=== PATIENT | male | born 1950 | race Caucasian/White ===

== ENCOUNTER → 2016-10-09 | Day surgery (SDC) | payer MEDICARE, MEDICAID ==
--- NOTE | 2016-10-04 15:28 | Pre-Procedure Note/Attestation ---
Pre-Procedure Note/Attestation Complete Prior to Procedure Planned Procedure: left Procedure Narrative: 1. CATARACT EXTRACTION WITH PHACO AND PC IOL IMPLANTATION, LEFT EYE. 2.MALYUGIN RING INSERTION, LEFT EYE FOR FLOPPY IRIS SYNDROME. 3.COMPLEX CATARACT , LEFT EYE Indications for Procedure Pre-Operative Diagnosis: 1. CATARACT ,LEFT EYE. 2. FLOPPY IRIS SYNDROME, LEFT EYE 3. COMPLEX CATARACT , LEFT EYE. Attestation I attest that I discussed the nature of the procedure; its benefits; risks and complications; and alternatives (and the risks and benefits of such alternatives ), prior to the procedure, with the patient (or the patient's legal service liaison representative). I attest that, if there was a reasonable possibility of needing a blood transfusion, the patient (or the patient's legal service liaison representative) was given the [facility] standardized written summary, pursuant to the Angelito Yuki Blood Safety Act ([place] Health and Safety Code # 1645, as amended). I attest that I re-evaluated the patient just prior to the surgery and that there has been no change in the patient's H&P, except as documented below: CHRISTINE ROWLEY Oct 04, 2016 15:28
[2016-10-09] VITALS (9 sets, daily range): BP systolic 125–147; BP diastolic 81–92
[~2016-10-09] VITALS: Ht 177.8 cm; Wt 72.6 kg
[~2016-10-09] MED LIST: Akten 3.5% 1ml Btl ONE; BSS 15ml BTL ONE; BSS 500ml btl ONE; Dexamethasone 4mg/ml vial ONE; Diclofenac Sod 0.1% Op Soln ONE; DiphenhydrAMINE 50mg/ml Inj IVP PRN; DiphenhydrAMINE 50mg/ml Inj ONE; EPINEPHrine 1mg/1ml Amp ONE; Gatifloxacin Opth Solution 0.5% ONE; LR 1000ml 1,000 ML IVLG SCH; LR 1000ml ONE; Labetalol 5mg/ml 20ml vial IV PRN; Lidocaine 1% MPF 10mg/ml 5ml ONE; Midazolam 2mg/2ml Inj ONE; NKM; Phenylephrine 10% Opth Soln 5ml ONE; Povidone-Iodine 5% opth solution ONE; Sodium Hyaluronate 10 mg/ml 0.85ml ONE; Tropicamide 1% Opth Soln ONE; ZOLPIDEM TARTRA10 MG ORAL; acetaZOLAMIDE 125mg tab ORAL ONE; fentaNYL 100 mcg/2 mL IV ONE
[2016-10-09] MEDS: Diclofenac Sod 0.1% Op Soln LEFT EYE SCH ×3 (07:08→07:26)
[2016-10-09] MEDS: Tropicamide 1% Opth Soln LEFT EYE SCH ×3 (07:08→07:26)
[2016-10-09] MEDS: Phenylephrine 10% Opth Soln 5ml LEFT EYE SCH ×3 (07:08→07:26)
[2016-10-09] MEDS: Gatifloxacin Opth Solution 0.5% LEFT EYE SCH ×3 (07:08→07:26)
[2016-10-09] MEDS: Akten 3.5% 1ml Btl LEFT EYE SCH ×3 (07:09→07:25)
--- NOTE | 2016-10-09 07:17 | Anethesia Preoperative Eval ---
Anesthesia Pre-op PMH/ROS General Date of Evaluation: Oct 09, 2016 Anesthesiologist: Cyrus ASA Score: ASA 1 Mallampati Score Class I : Soft palate, uvula, fauces, pillars visible Class II: Soft palate, uvula, fauces visible Class III: Soft palate, base of uvula visible Class IV: Only hard plate visible Mallampati Classification: Class II Surgeon: Felix Diagnosis: Left cataract Surgical Procedure: Left cataract extraction with IOL Anesthesia History: none Family History: no anesthesia problems Allergies: Coded Allergies: No Known Allergies (Unverified , 09/27/16) Medications: see eMAR Past Medical History Cardiovascular: Denies: CAD, HTN, CT, arrhythmia, other, valve dz Pulmonary: Denies: COPD, KARLENE, asthma, other Gastrointestinal/Genitourinary: Denies: CRI, ESRD, GERD, other Neurologic/Psychiatric: Denies: CVA, TIA, dementia, depression/anxiety, other Endocrine: Denies: DM, hypothyroidism, other, steroids HEENT: Denies: L[place]EL[place] (L), LEVELOCK (R), cataract (L), cataract (R), glaucoma, other Hematology/Immune: Denies: DVT, anemia, bleeding disorder, other Musculoskeletal/Integumentary: Denies: DDD, DJD, OA, RA, edema, other PSxH Narrative: Right cataract Anesthesia Pre-op Phys. Exam Physician Exam see chart Constitutional: NAD Cardiovascular: RRR Respiratory: CTA Airway Exam Mallampati Score: Class II MO: full ROM: full Teeth: intact Anesthesia Pre-op A/P Labs see chart Studies Pre-op Studies: EKG - sr Risk Assessment & Plan Assessment: ASA I Plan: MAC Status Change Before Surgery: No Pre-Antibiotics Drug: N/A ALPHONSO MCCALL M.D. Oct 09, 2016 07:17
--- NOTE | 2016-10-09 07:25 | Immediate Post-Op Evaluation ---
Immediate Post-Op Evalulation Immediate Post-Op Evalulation Procedure: Left cataract extraction with IOL Date of Evaluation: Oct 09, 2016 Time of Evaluation: 09:38 IV Fluids: 400 Blood Products: 0 Estimated Blood Loss: 0 Urinary Output: 0 Blood Pressure Systolic: 142 Blood Pressure Diastolic: 87 Pulse Rate: 72 Respiratory Rate: 17 O2 Sat by Pulse Oximetry: 100 Temperature (Fahrenheit): 98.1 Pain Score (1-10): 0 Nausea: No Vomiting: No Complications 0 Patient Status: awake, reacts, patent, none Hydration Status: adequate Drug: N/A ALPHONSO MCCALL M.D. Oct 09, 2016 07:25
--- NOTE | 2016-10-09 07:25 | 48 Hour Post Anesthesia Eval ---
Post Anesthesia Evaluation Procedure: Left cataract extraction with IOL Date of Evaluation: Oct 09, 2016 Blood Pressure Systolic: 146 0: 90 Pulse Rate: 69 Respiratory Rate: 16 O2 Sat by Pulse Oximetry: 100 Airway: patent Nausea: No Vomiting: No Pain Intensity: 0 Hydration Status: adequate Cardiopulmonary Status: at baseline Mental Status/LOC: patient returned to baseline Post-Anesthesia Complications: 0 Follow-up care needed: ready to discharge ALPHONSO MCCALL M.D. Oct 09, 2016 07:25
--- NOTE | 2016-10-09 09:38 | Brief Operative Note ---
Immediate Post Operative Note Operative Note Chief Complaint: Blurry vision, left eye. difficulty driving and reading, right eye Pre-op Diagnosis: 1. CATARACT ,LEFT EYE. 2. FLOPPY IRIS SYNDROME, LEFT EYE 3. COMPLEX CATARACT , LEFT EYE. Procedure: Cataract extraction with phaco and PC IOL implantation, left eye Post-op Diagnosis: same as pre-op Surgeon: Christine Washington MD [employer] Counterperson: None Additional Surgeons: None Anesthesiologist: Dr. Marley Anesthesia: MAC Specimen: none Complications: none Condition: stable Estimated Blood Loss: none Drains: none Implant(s) used?: Yes - Monofocal PC IOL was implanted in the left eye without complication CHRISTINE WASHINGTON Oct 09, 2016 09:38
--- NOTE | 2016-10-09 19:18 | Discharge Summary ---
DATE OF ADMISSION: 10/09/2016 DATE OF DISCHARGE: 10/09/2016 REASON FOR ADMISSION: Cataract in the left eye. SURGERY PERFORMED: Cataract extraction with phacoemulsification of posterior chamber intraocular lens implantation in the left eye. CONDITION IN THE HOSPITAL: The patient tolerated the surgery without complications. DISCHARGED CONDITION: The patient was stable at discharge. DISCHARGE MEDICATIONS: 1. Vigamox eye drops one drop q.i.d. in the left eye. 2. Prednisolone one drop q.i.d. left eye. 3. Acular one drop q.i.d., left eye. POSTOPERATIVE ORDERS: The patient has to rest at home. No bending and no lifting. No watching TV tonight. Postoperative Followup: The patient will be followed in my office tomorrow morning at 6:30 a.m. Get Washington M.D. DR: VERNON JOB#: [id number] CC:
--- NOTE | 2016-10-09 19:18 | Operative Note - Dictated ---
DATE OF OPERATION: 10/09/2016 FACILITY: [facility]. SURGEON: Get Washington M.D. CUE WORKER: None. ANESTHESIOLOGIST: Dr. Marley. ANESTHESIA: Monitored anesthesia care (MAC). PREOPERATIVE DIAGNOSIS: Cataract in the left eye. POSTOPERATIVE DIAGNOSIS: Cataract in the left eye. SURGERY PERFORMED: Cataract extraction with insertion of posterior chamber intraocular lens implantation in the left eye. INDICATION FOR SURGERY: The patient is a 66-year-old gentleman with a history of benign prostatic hypertrophy and he has had prostatectomy. He is not allergic to any medications. He is a healthy gentleman, who has been complaining of blurred vision in the left eye. He has had cataract surgery in the right eye last week and he is happy with the results. On examination of the left eye, the cornea is clear. Anterior chamber is deep and quiet. The pupillary reflex is normal. There is no RAPD. There is 3+ nuclear sclerosis and 2+ cortical cataract in the left eye. Funduscopy shows normal macula, normal optic disc. Periphery retina is attached. He improved his with the vision in the left eye, where the cataract has to be removed and posterior chamber intraocular lens has to be implanted. INFORMED CONSENT: The nature of the surgery, the risks, benefits, alternatives and potential complications were all explained in detail to the patient in his language, Farsi. Therefore, the potential complications including, but not limited to bleeding, infection, posterior capsular rupture, lens subluxation of the left anterior chamber, iris prolapse, uveitis, corneal edema, macular edema, endophthalmitis, retinal infection, loss of the vision and loss of the eye were all explained to the patient. The patient voiced understanding and accepted these complications and the alternatives including accommodating lenses, multifocal lenses, toric lens, and conventional cataract surgery with limbal relaxing incision for treatment of astigmatism were all explained in detail to the patient in his language, Farsi. The patient voiced understanding. Therefore, the patient elected to have only conventional cataract surgery in the left eye. Then, he signed a consent form, which is in the chart. DESCRIPTION OF OPERATION: Following that, the patient was taken to the operation room in a stable condition. Lidocaine gel Akten 3.5% were applied to the conjunctiva of the left eye. IV sedation was given by the anesthesiologist, Dr. Marley. After adequate anesthesia and sedation had been achieved, the left eye was prepped and draped in sterile fashion for intraocular surgery. Following that, a speculum was placed in the left eye. Following that, using the Super Sharp knife, a clear corneal side port was created. A 1% lidocaine without preservative (MPF) was injected into the anterior chamber. The viscoelastic agent, Healon was injected into the anterior chamber. Following that, using a 2.8 mm keratome, a corneal temporal keratotomy was performed. Viscoelastic was injected into the anterior chamber again. Following that, Vision blue was injected under the viscoelastic agent to stain the anterior capsule of the lens. Following that, a clear fresh viscoelastic agent, Healon was injected into the anterior chamber. Under the viscoelastic agent, an anterior capsulotomy was performed in the fashion of capsulorrhexis beautifully. Following that, the above viscoelastic agent was removed from the anterior chamber. Hydrodissection and hydrodelineation was performed using a balanced salt solution and the nucleus was freed. Following that, viscoelastic agent, Healon was injected into the anterior chamber to protect the endothelium of the cornea. Following that, using the phacoemulsification machine in the fashion of horizontal chop, the nucleus was removed in toto. Following that, the cortical material was removed from the capsular bag and the capsular bag was polished. Following that, the capsular bag was filled with viscoelastic agent, Healon. Following that, a +24 diopter, ZCB00 foldable PCIOL with serial #[id number] was injected into the capsular bag. Using a Sinskey hook, the lens was manipulated within the proper position. Following that, the viscoelastic was removed from the posterior and anterior parts of the lens. Following that, the anterior chamber was filled with balanced salt solution. Following that, the wound was hydrated with balanced salt solution. Then the wound was checked for leakage, there was no leakage. Vigamox eye drops were applied to the conjunctiva of the left eye. The patient tolerated the surgery without complications in the left eye. At the end of the surgery, the left eye was patched with a clear sterile fenestrated shield. The patient tolerated the surgery without complications. Following that, the patient was transferred to the recovery room. In the recovery room, 125 mg Diamox was given by mouth stat. Postoperative orders and directions were given to the patient. The patient will be discharged home upon stabilization. The patient will be followed in my office tomorrow morning at 6:30 a.m. Get Washington M.D. DR: VERNON JOB#: [id number] CC:
== END | disposition home or self-care (01) ==
LOC: SUR 06:34
DX: H25.12 Age-related nuclear cataract, left eye (principal); H25.012 Cortical age-related cataract, left eye; K21.9 Gastro-esophageal reflux disease without esophagitis; Z90.79 Acquired absence of other genital organ(s)
CPT/HCPCS: 66984; J0171; J1100; J1200; J2250; J3010; J7120; V2632; 94003; 94150